=== PATIENT | female | born 1985 | race Caucasian/White ===

== ENCOUNTER 2022-03-27 11:55 | Emergency (ER) | payer BC, SELFPAY ==
--- NOTE | 2022-03-27 12:01 | ED.EAR ---
HPI - Ear Problem General Chief complaint: Ear Stated complaint: ear pain Time Seen by Provider: 03/27/22 12:15 Source: patient, RN notes reviewed and old records reviewed Mode of arrival: ambulatory Limitations: no limitations History of Present Illness HPI Narrative: 36-year-old female presents to the [facility] with right ear pain. Patient states she woke up today with ear pain and took some DayQuil. No other treatment prior to arrival. Denies any fevers, drainage, chest pain or abdominal pain. No nausea vomiting or diarrhea. Related Data Home Medications Medication Instructions Recorded Confirmed bupropion HCl 150 mg tablet,12 hr 150 mg PO BID 06/21/19 03/27/22 sustained-release (Wellbutrin SR) lamotrigine 100 mg tablet 200 mg PO BID 06/21/19 03/27/22 (Lamictal) fluoxetine 20 mg capsule 20 mg PO DAILY 01/26/21 03/27/22 levonorgestrel 20 mcg/24 hours (7 1 device intrauterine ONCE 03/27/22 03/27/22 yrs) 52 mg intrauterine device (Mirena) risperidone 0.5 mg tablet 0.5 mg BID 03/27/22 03/27/22 Allergies Allergy/AdvReac Type Severity Reaction Status Date / Time nickel Allergy Mild Rash Verified 03/27/22 12:24 Review of Systems Review of Systems: All systems reviewed & are unremarkable except as noted in HPI and below Constitutional: Constitutional: Reports no additional constitutional complaints, Denies chills and Denies fever(s) Eyes: Eyes: Reports no additional eye complaints ENT: Reports as per HPI (Right ear pain) Cardiovascular: Cardiovascular: Reports no additional cardiovascular complaints Respiratory: Respiratory: Reports no additional respiratory complaints Gastrointestinal: Gastrointestinal: Reports no additional gastrointestinal complaints Musculoskeletal: Musculoskeletal: Reports no additional musculoskeletal complaints Integumentary/Breasts: Skin/Breast: Reports system reviewed and no additional complaints, except as docu Neurologic: Reports system reviewed and no additional complaints, except as documented Psychiatric: Psychiatric: Reports no additional psychiatric complaints Allergic/Immunologic: Allergic/Immunologic: Reports no additional allergic/immunologic complaints PMFSH Past Medical History Medical History Anxiety disorder, unspecified Bipolar 1 disorder Bipolar 2 disorder BMI 36.0-36.9,adult Cyst of ovary, right Dietary counseling and surveillance (01/08/19) Moderate episode of recurrent major depressive disorder Nausea Other symptoms and signs involving emotional state Routine physical examination RUQ abdominal pain Screening for diabetes mellitus Screening for lipid disorders Screening for thyroid disorder Tremor of both hands Vitamin D deficiency, unspecified Weight gain Family History Family History Mother Family history of mental disorder Hypertension Family history of Alzheimer's disease Sibling Family history of mental disorder Family history of heart disease Glaucoma Father Arthritis, rheumatoid Family history of heart disease Social History Social History Smoking status: Never smoker Second hand tobacco smoke exposure: Yes Alcohol intake: current Substance use: current Substance use type: marijuana 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 There is no relevant family history pertinent to the patient complaint. Exam Const: General: healthy appearing, no acute distress and alert Nutritional Appearance: well nourished and obese Orientation/consciousness: patient oriented x3 Limitations: no limitations HENMT: Head: normal to inspection Ears: external
[2022-03-27 12:06] VITALS: BP 135/81; PULSE 87; RESP 18; TEMP 36.4; O2SAT 100
== END 2022-03-27 12:34 | disposition home or self-care (01) ==
PROVIDERS: Emergency Provider Nurse Practitioner; PCP Family Medicine
DX: H66.91 Otitis media, unspecified, right ear (principal); H60.511 Acute actinic otitis externa, right ear; F31.81 Bipolar II disorder; F41.9 Anxiety disorder, unspecified
CPT/HCPCS: 99213; G0463

== ENCOUNTER 2022-07-22 17:15 | Emergency (ER) | payer BC, SELFPAY ==
[2022-07-22 17:39] VITALS: BP 121/69; PULSE 66; RESP 18; TEMP 36.9; O2SAT 99
--- NOTE | 2022-07-22 18:09 | ED.URI ---
HPI - URI/Sore Throat General Chief Complaint: Upper Respiratory Infection Stated Complaint: sorethroat Time Seen by Provider: 07/22/22 18:10 Source: patient, RN notes reviewed and old records reviewed Mode of arrival: ambulatory Limitations: no limitations History of Present Illness HPI Narrative: 37-year-old female presents to the [facility] with complaints of a sore throat. States she has had a sore throat for 4 days. A couple of coworkers tested positive for strep. Denies fevers. has taken ibuprofen for symptoms MD elicited complaint: sore throat Onset (ago): day(s) (4) Related Data Home Medications Medication Instructions Recorded Confirmed bupropion HCl 150 mg tablet,12 hr 150 mg PO BID 06/21/19 07/22/22 sustained-release (Wellbutrin SR) lamotrigine 100 mg tablet 200 mg PO BID 06/21/19 07/22/22 (Lamictal) fluoxetine 20 mg capsule 20 mg PO DAILY 01/26/21 07/22/22 levonorgestrel 20 mcg/24 hours (8 1 device intrauterine ONCE 03/27/22 07/22/22 yrs) 52 mg intrauterine device (Mirena) Allergies Allergy/AdvReac Type Severity Reaction Status Date / Time nickel Allergy Mild Rash Verified 07/22/22 18:24 Review of Systems Review of Systems: All systems reviewed & are unremarkable except as noted in HPI and below Constitutional: Constitutional: Reports no additional constitutional complaints Eyes: Eyes: Reports no additional eye complaints ENT: Reports as per HPI and Reports sore throat Cardiovascular: Cardiovascular: Reports no additional cardiovascular complaints, Denies chest pain and Denies dyspnea Respiratory: Respiratory: Reports no additional respiratory complaints, Denies chest congestion, Denies cough and Denies dyspnea Gastrointestinal: Gastrointestinal: Reports no additional gastrointestinal complaints, Denies abdominal pain, Denies nausea and Denies vomiting Musculoskeletal: Musculoskeletal: Reports no additional musculoskeletal complaints Integumentary/Breasts: Skin/Breast: Reports system reviewed and no additional complaints, except as docu Neurologic: Reports system reviewed and no additional complaints, except as documented Psychiatric: Psychiatric: Reports no additional psychiatric complaints Allergic/Immunologic: Allergic/Immunologic: Reports no additional allergic/immunologic complaints PMFSH Past Medical History Medical History Anxiety disorder, unspecified Bipolar 1 disorder Bipolar 2 disorder BMI 36.0-36.9,adult Cyst of ovary, right Dietary counseling and surveillance (01/08/19) Moderate episode of recurrent major depressive disorder Nausea Other symptoms and signs involving emotional state Routine physical examination RUQ abdominal pain Screening for diabetes mellitus Screening for lipid disorders Screening for thyroid disorder Tremor of both hands Vitamin D deficiency, unspecified Weight gain Family History Family History Mother Family history of mental disorder Hypertension Family history of Alzheimer's disease Sibling Family history of mental disorder Family history of heart disease Glaucoma Father Arthritis, rheumatoid Family history of heart disease Social History Social History Smoking status: Never smoker Second hand tobacco smoke exposure: Yes Alcohol intake: current Substance use: current Substance use type: marijuana 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 There is no relevant family history pertinent to the patient complaint. Exam Const: General: cooperative, healthy appearing, comfortable, no acute distress, well developed, alert and well nourished Nutri
== END 2022-07-22 18:40 | disposition home or self-care (01) ==
PROVIDERS: Emergency Provider Nurse Practitioner; PCP Family Medicine
DX: J02.9 Acute pharyngitis, unspecified (principal); F31.9 Bipolar disorder, unspecified; F41.9 Anxiety disorder, unspecified; F12.90 Cannabis use, unspecified, uncomplicated
CPT/HCPCS: 87081; 99213; G0463